=== PATIENT | male | born 1970 | race Caucasian/White ===

== ENCOUNTER → 2017-05-26 | Outpatient (CLI) | payer MEDICARE ==
[~2017-05-26] MED LIST: ANORO ELLIPTA1 EACH INH; CHLORDIAZEPOXID25 M1 PO; IBU-200200 MG PO; KLONOPIN1 M1 PO; NICOTINE T21 MG/24 H T; TRAZODONE HCL50 MG PO; VISTARIL25 M2 PO; Zofran4 MG PO
[2017-05-26 18:39] LABS: BUN 12 mg/dl (7-24); CREATININE 0.94 mg/dL (0.70-1.30)
== END | disposition home or self-care (01) ==
LOC: LAB 16:53 → CT 17:00
PROVIDERS: Internal Medicine Critical Care Medicine
DX: R05 Cough (principal); R06.02 Shortness of breath; R59.0 Localized enlarged lymph nodes

== ENCOUNTER → 2018-06-14 | Outpatient (CLI) | payer MEDICARE | END | disposition home or self-care (01) | LOC: US 11:16 | DX: M25.571 Pain in right ankle and joints of right foot (principal); M25.572 Pain in left ankle and joints of left foot ==

== ENCOUNTER → 2020-07-17 | Outpatient (CLI) | payer OTHER | END | disposition home or self-care (01) | LOC: RAD 12:08 | PROVIDERS: ATTEND Family Medicine | DX: M50.30 Other cervical disc degeneration, unspecified cervical region (principal); M85.88 Other specified disorders of bone density and structure, other site; M48.02 Spinal stenosis, cervical region ==

== ENCOUNTER → 2021-02-18 | Outpatient (CLI) | payer OTHER | END | disposition home or self-care (01) | LOC: COVID19 16:00 | PROVIDERS: ATTEND Internal Medicine | DX: U07.1 COVID-19 (principal) ==

== ENCOUNTER → 2021-05-15 | Outpatient (CLI) | payer OTHER | END | disposition home or self-care (01) | LOC: RAD 05-13 08:00 | PROVIDERS: ATTEND Surgery | DX: K21.9 Gastro-esophageal reflux disease without esophagitis (principal) ==

== ENCOUNTER → 2021-06-26 | Day surgery (SDC) | payer OTHER ==
[2021-06-23 14:00] LABS: BUN 21 mg/dl (7-24); CHLORIDE 103 mmol/L (98-107); CREATININE 1.01 mg/dL (0.70-1.30); POTASSIUM 3.8 mmol/L (3.5-5.1); SODIUM 139 mmol/L (136-145)
[~2021-06-26] MED LIST changes: +COLACE100 MG PO; +PERCOCET 5-3251 EACH PO; +ZOFRAN4 MG PO
[2021-06-26 08:47] VITALS: BP 142/84
[2021-06-26 10:17] VITALS: BP 174/102
[2021-06-26 10:32] VITALS: BP 172/103
[2021-06-26 10:47] VITALS: BP 157/91
[2021-06-26 11:02] VITALS: BP 151/86
[2021-06-26 11:12] VITALS: BP 159/84
== END | disposition home or self-care (01) ==
LOC: SDC 06-02 12:00
PROVIDERS: ATTEND Surgery
DX: K43.6 Other and unspecified ventral hernia with obstruction, without gangrene (principal); E11.9 Type 2 diabetes mellitus without complications; M19.90 Unspecified osteoarthritis, unspecified site; K21.9 Gastro-esophageal reflux disease without esophagitis; Z87.891 Personal history of nicotine dependence; Z88.0 Allergy status to penicillin; Z79.899 Other long term (current) drug therapy; Z20.822 Contact with and (suspected) exposure to COVID-19